=== PATIENT | male | born 1980 | race African-American/Black ===

== ENCOUNTER 2017-03-11 21:00 | Emergency (ER) | payer SELFPAY ==
[~2017-03-11] VITALS: Ht 175.3 cm; Wt 84.4 kg
[2017-03-11 21:00] VITALS: BP 95/52
--- NOTE | 2017-03-11 21:21 | NUR ---
FSBS 94G/DL
--- NOTE | 2017-03-11 23:38 | NUR ---
CALLED FOR ROOM ASSIGNMENT; INFORMED "PT LEFT"
== END 2017-03-11 23:40 | disposition left against medical advice (07) ==
LOC: ER 21:01
DX: Z53.21 Procedure and treatment not carried out due to patient leaving prior to being seen by health care provider (principal); R73.09 Other abnormal glucose
CPT/HCPCS: 82962; A4606; Z7610

== ENCOUNTER 2017-03-31 09:40 | Emergency (ER) | payer SELFPAY ==
[~2017-03-31] VITALS: Ht 193 cm; Wt 102.1 kg
--- NOTE | 2017-03-31 14:12 | NUR ---
PT AMBULATORY WITH STEADY GAIT. NO ACUTE S/S OF DISTRESS NOTED AT THIS TIME
[2017-03-31 14:15] VITALS: BP 127/93
== END 2017-03-31 14:15 | disposition home or self-care (01) ==
LOC: ER 09:41
DX: F10.129 Alcohol abuse with intoxication, unspecified (principal); R51 Headache; Z86.718 Personal history of other venous thrombosis and embolism
CPT/HCPCS: 70450; 99284; A4606; Z7610

== ENCOUNTER 2017-03-31 16:44 | Emergency (ER) | payer SELFPAY ==
[~2017-03-31] VITALS: Ht 193 cm; Wt 99.8 kg
--- NOTE | 2017-03-31 16:47 | NUR ---
PT BUBBA FROM THE STREETS TO ER BED 14. HERE FOR ETOH. WAS RECENTLY D/C'D FOR SAME REASON. PLACED ON MONITOR. STABLE VITALS. AWAITING MD DOMINGUEZ.
--- NOTE | 2017-03-31 17:20 | NUR ---
TAMICA LIZ AT BEDSIDE FOR EVAL.
--- NOTE | 2017-03-31 17:29 | NUR ---
CHANNEL MARKETING SPECIALIST AT BEDSIDE FOR BLOOD DRAW.
[2017-03-31 17:45] LABS: HEMATOCRIT 36 % (39-51); HEMOGLOBIN 11.8 g/dL (13.5-17.5); MEAN CORPUSCULAR HEMOGLOBIN 35 PG (26.0-33.0); MEAN CORPUSCULAR HGB CONC 33 g/dl (31.0-36.0); MEAN CORPUSCULAR VOLUME 105 fL (80-96); PLATELET COUNT (AUTO) 80 /CMM (150-450); RDW COEFFICIENT OF VARIATION 14.4 (11.5-15.0); RED BLOOD CELL COUNT(AUTO) 3.43 MIL/uL (4.5-6.0); WHITE BLOOD COUNT (AUTO) 3.9 K/uL (4.3-11.0)
[2017-03-31 17:53] LABS: ALANINE AMINOTRANSFERASE 29 U/L (12-78); ALBUMIN 2.5 g/dL (3.4-5.0); ALCOHOL, BLOOD 588 mg/dL (0-0); ALKALINE PHOSPHATASE 91 U/L (46-116); ASPARTATE AMINOTRANSFERASE 76 U/L (15-37); BILIRUBIN,DIRECT 0.1 mg/dL (0.0-0.2); BILIRUBIN,TOTAL 0.2 mg/dL (0.2-1.0); CALCIUM, SERUM 8.4 mg/dL (8.5-10.1); CARBON DIOXIDE 32 mmol/L (21-32); CHLORIDE 105 mmol/L (98-107); CREATININE 0.6 mg/dL (0.6-1.3); GLUCOSE 85 mg/dL (74-106); POTASSIUM 3.4 mmol/L (3.5-5.1); SODIUM SERUM 145 mmol/L (136-145); TOTAL PROTEIN, SERUM 7.4 g/dL (6.4-8.2); UREA NITROGEN, BLOOD 8 mg/dL (7-18)
[2017-03-31 17:55] LABS: ACETAMINOPHEN < 2 ug/ml (10-30); SALICYLATE 1.1 mg/dL (2.8-20.0)
[2017-03-31] MEDS ORDERED: ONDANSETRON HCL/PF 4 MG/2 ML VIAL IV ONE (18:30)
[2017-03-31] MEDS ORDERED: IV NS 0.9% 1,000 ML BAG IV ONE (18:30)
[2017-03-31 18:33] LABS: EOSINOPHILS % (MANUAL) 1 % (0-4); LYMPHOCYTES % (MANUAL) 37 % (16-48); MONOCYTES % (MANUAL) 8 % (0-11.0); NEUTROPHILS % (MANUAL) 53 (42-76); REACTIVE LYMPHOCYTES 1 % (0-0)
[2017-03-31] MEDS ORDERED: ONDANSETRON HCL/PF 4 MG/2 ML VIAL ONE (19:06)
--- NOTE | 2017-03-31 20:35 | NUR ---
PT SLEEPING, EASILY AROUASABLE. VERBALLY RESPONSIVE. ON MONITOR. STABLE VITALS. WILL CONTINUE TO MONITOR.
[2017-03-31 21:35] VITALS: BP 132/77
--- NOTE | 2017-03-31 21:45 | NUR ---
TAMICA BACK AT BEDSIDE FOR RE EVAL. PER SHALONDA. OK FOR D/C. ASKED FOR FOOD STATING HE IS HUNGRY. WILL PROVIDE SANDWICH AND ORAL FLUIDS.
--- NOTE | 2017-03-31 21:55 | NUR ---
Note oma in EDM - 03/31/17 at 2245 by OSWALDO TAMICA BACK AT BEDSIDE FOR RE EVAL. SONNY ANDREW FOR D/C. ASKED FOR FOOD STATING HE IS HUNGRY. WILL PROVIDE SANDWICH.
[2017-03-31] MEDS ORDERED: EPINEPHRINE (1:10,000) SYRINGE 1 MG/10 ML DISP.SYRIN IVP ONE (22:00)
[2017-03-31] MEDS ORDERED: FEE EMEERGENCY 1 MIN EA MC ONE (22:00)
--- NOTE | 2017-03-31 22:01 | NUR ---
PT NOTED TO BE UNRESPONSIVE. [facility] WAS CALLED. SEE [employer] SHEET.
[2017-03-31] MEDS ORDERED: Magnesium 1GM/D5W 100ML PREMIX 200 ML IV ONE (22:15)
[2017-03-31] MEDS ORDERED: EPINEPHRINE (1:10,000) SYRINGE 1 MG/10 ML DISP.SYRIN ONE ×2 (22:35→22:36)
--- NOTE | 2017-03-31 22:46 | NUR ---
BULMARO CASE #[id number] TALKED TO ANDREINA
--- NOTE | 2017-03-31 22:54 | NUR ---
CALLED [facility], SPOKE WITH SUYAPA.
--- NOTE | 2017-04-01 00:07 | NUR ---
TIME OF CALLED BY DR JUAREZ- [id number].
== END 2017-04-01 00:08 ==
LOC: ER 16:45
DX: F10.129 Alcohol abuse with intoxication, unspecified (principal); Z86.718 Personal history of other venous thrombosis and embolism
CPT/HCPCS: 36415; 80048-TC; 80076-TC; 85025-TC; 92950-TC; A4606; G0480; J0171; J2405; J3475; J7030; Z7610